=== PATIENT | female | born 1960 | race Caucasian/White ===

== ENCOUNTER → 2023-09-28 15:57 | Outpatient (CLI) | payer BC, SELFPAY ==
--- NOTE | 2023-09-28 16:00 | DI.RAD.S_ITS ---
PROCEDURE: XR SHOULDER RT MIN 2V INDICATIONS: Right shoulder/upper arm injury due to fall TECHNIQUE: 3 views of the shoulder were acquired. COMPARISON: None. FINDINGS: Bones: There is a comminuted fracture of the humeral head and neck. No dislocation. No suspicious bony lesions. Visualized ribs appear intact. 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 Soft tissues: No suspicious soft tissue calcifications. IMPRESSION: Comminuted fracture of the humeral head and neck. No shoulder dislocation. Dictated by: Alfredo Art M.D. on 09/29/2023 at 9:15 Approved by: Alfredo Art M.D. on 09/29/2023 at 9:24
--- NOTE | 2023-09-28 16:00 | DI.RAD.S_ITS ---
PROCEDURE: XR HUMERUS RT 2V INDICATIONS: Right shoulder/upper arm injury due to fall TECHNIQUE: 2 views of the humerus were acquired. COMPARISON: [facility], CR, XR SHOULDER RT MIN 2V, 09/28/2023, 15:17. FINDINGS: Bones: Comminuted fracture of the humeral head and neck. No distal fractures. No dislocation. No suspicious bony lesions. Soft tissues: No suspicious soft tissue calcifications. IMPRESSION: Comminuted fracture of the right humeral head and neck. Dictated by: Jeff Klein M.D. on 09/28/2023 at 17:37 Approved by: Jeff Klein M.D. on 09/28/2023 at 17:37
== END ==
LOC: RAD 16:00
PROVIDERS: Referring Provider Physician Assistant Surgical; Visit Provider Physician Assistant Surgical
DX: S42.291A Other displaced fracture of upper end of right humerus, initial encounter for closed fracture (principal); S49.91XA Unspecified injury of right shoulder and upper arm, initial encounter; X58.XXXA Exposure to other specified factors, initial encounter
CPT/HCPCS: 73030; 73060